=== PATIENT | female | born 1975 | race Caucasian/White ===

== ENCOUNTER 2024-08-04 22:06 | Emergency (ER) | payer OTHER, SELFPAY ==
[2024-08-04 22:07] VITALS: BP 127/94
[2024-08-04 23:13] VITALS: BMI 26.3
[2024-08-04 23:16] VITALS: BP 133/79
[2024-08-05] VITALS: BP 126/86
--- NOTE | 2024-08-05 00:11 | ED.GENMED ---
History of Present Illness
<Kym Radford MD, Resident - Last Filed: 08/07/24 08:15>
General
Chief Complaint: Breathing Problem
Source: patient
Exam Limitations: none
Time Seen by Provider: 08/04/24 23:38
History of Present Illness
History of Present Illness:
Patient is a 49-year-old female with no known prior allergy history. Mentions she had a headache earlier today and wanted to take Tylenol but accidentally took Mucinex. This was her first time taking Mucinex. Shortly after she developed an itchy
throat, shortness of breath, difficulty speaking and redness of both eyes along with clear discharge from nose and eyes. She also developed an itchy rash on her neck and arm.
Denies nausea, vomiting, diarrhea. Denies wheezing/cough. Denies dizziness/lightheadedness. Patient did drink water prior to coming to hospital and did not have trouble swallowing. Does not mention worsening of symptoms.
If applicable-neuro sx onset
Onset of symptoms known: Yes
Date of onset of symptoms: 08/04/24
Time of onset of symptoms: 17:50
Past History
<Kym Radford MD, Resident - Last Filed: 08/07/24 08:15>
Past History
ED Past Medical History: None
ED Past Surgical History: Other (Hysterectomy)
Review of Systems
<Kym Radford MD, Resident - Last Filed: 08/07/24 08:15>
Review of Systems
Allergies reviewed?: Yes
All Other Systems: ROS reviewed and negative except as documented in HPI and ROS
Phy Exam
<Kym Radford MD, Resident - Last Filed: 08/07/24 08:15>
General Physical Exam
General Presentation: moderate distress
General Skin: warm and dry
General Habitus: normal
General Mental: alert
ENT Exam
ENT Exam: EOMI and pharyngeal erythema (Very mild pharyngeal edema)
Eye Exam
Eye Exam: EOMI
Conjunctival Changes: bilateral: chemosis
Cardiovascular Exam
Cardiovascular Exam: regular rate/rhythm, no edema, no murmur and normal peripheral pulses
Pulmonary Exam
Pulmonary Exam: lungs clear, no respiratory distress and no wheezing
Cough: no cough
Gastrointestinal Exam
Gastrointestinal Exam: normal bowel sounds, non tender, soft and non distended
Neurological Exam
Neurological Exam: alert, oriented x3 and other (Hoarseness)
Musculoskeletal Exam
Musculoskeletal Exam: full ROM and no edema
Skin Exam
Skin Exam: erythema (Macular rash on upper chest and left arm)
Scores
<Kym Radford MD, Resident - Last Filed: 08/07/24 08:15>
Heart Failure Risk
Heart Failure Risk Score: Not Applicable
Course
<Kym Radford MD, Resident - Last Filed: 08/07/24 08:15>
Orders/Labs/Results
Orders:
Orders
08/05/24 00:08
Diphenhydramine [Benadryl] 50 mg PO NOW STA
08/05/24 00:10
Prednisone [Deltasone] 50 mg PO NOW STA
08/05/24 00:20
COVID-19 Antigen Urgent
Source: Nasal Swab
Influenza A+B Rapid Molecular Urgent
TIM Source: Nasal Swab
Specimen Description:
Vital Signs
Initial and Last Documented VS:
Initial Vital Signs
Temp Pulse Resp BP Pulse Ox
98.2 F 90 14 127/94 98
08/04/24 22:07 08/04/24 22:07 08/04/24 22:07 08/04/24 22:07 08/04/24 22:07
Last Documented Vital Signs
Temp Pulse Resp BP Pulse Ox
98.2 F 90 14 124/85 100
08/04/24 22:07 08/04/24 22:07 08/04/24 22:07 08/05/24 01:01 08/05/24 01:01
<Ryan Ferreira DO - Last Filed: 08/05/24 01:38>
Orders/Labs/Results
Orders:
Orders
08/05/24 00:08
Diphenhydramine [Benadryl] 50 mg PO NOW STA
08/05/24 00:10
Prednisone [Deltasone] 50 mg PO NOW STA
08/05/24 00:20
COVID-19 Antigen Urgent
Source: Nasal Swab
Influenza A+B Rapid Molecular Urgent
TIM Source: Nasal Swab
Specimen Description:
Vital Signs
Initial and Last Documented VS:
Initial Vital Signs
Temp Pulse Resp BP Pulse Ox
98.2 F 90 14 127/94 98
08/04/24 22:07 08/04/24 22:07 08/04/24 22:07 08/04/24 22:07 08/04/24 22:07
Last Documented Vital Signs
Temp Pulse Resp BP Pulse Ox
98.2 F 90 14 124/85 100
08/04/24 22:07 08/04/24 22:07 08/04/24 22:07 08/05/24 01:01 08/05/24 01:01
<Kym Radford MD, Resident - Last Filed: 08/07/24 08:15>
MDM/Problems Addressed
Differential Diagnosis Includes:
Allergic reaction to medication, upper respiratory infection
MDM/Problems Addressed:
Oral prednisone 50 and Benadryl 50 ordered for patient.
<Ryan Ferreira DO - Last Filed: 08/05/24 01:38>
MDM/Problems Addressed
MDM/Problems Addressed:
Suspected allergic reaction
<Ryan Ferreira DO - Last Filed: 08/05/24 01:38>
*Pulse Oximetry
Patient hypoxic: no
*Critical Care Note
Total Time (30-74mins, 75-104mins- exclusive of procedures): Not Applicable
Data Reviewed
Source: patient and family
ED Attending Note
<Kym Radford MD, Resident - Last Filed: 08/07/24 08:15>
-
Portions of this chart may have been created with voice recognition software.� Occasional wrong word or��sound alike� substitutions may have occurred due to the inherent limitations of voice recognition software.
<Ryan Ferreira DO - Last Filed: 08/05/24 01:38>
ED Attending Note
Patient seen and examined by attending physician: Yes
I performed a history and physical exam of patient and discussed management with resident, I reviewed resident's note and agree with documented findings and plan of care.: Yes
ED Attending Note:
49-year-old female presents after she began to have symptoms shortly after taking 2 Mucinex by accident. She thought she was taking 2 Tylenol. Shortly after she took the Mucinex she began to have congestion, reddened eyes, scratchy throat. She
feel that she had a reaction to the Mucinex. Exam: No stridor, lungs clear, very mild hoarse voice, sclera injected bilaterally. Assessment plan: Question viral source versus allergic reaction. Treated with steroids and Benadryl does feel bit
better. No upper airway compromise at this time. Okay for discharge. Benadryl as needed at home
Discharge Plan
Departure
Patient Disposition: Home (Routine Discharge)
Date of Disposition: 08/05/24
Time of Disposition: 01:37
Patient with high blood pressure during this ER visit?: No
Discharge Problem:
Allergic reaction
Instructions: Allergic Reaction ED
Prescriptions:
No Action
No Current Medications
0
Referrals:
Maurice Bui MD [Family Provider] -
Activity Restrictions/Additional Instructions:
Use Benadryl as needed. Return immediately for difficulty swallowing, difficulty breathing, changes in voice, noisy breathing (stridor or wheezing), or any other concerns.
Interventions
Interventions:
*Risk Screen - Suicide Last Done: 08/04/24 23:13
*General Assessment Last Done: 08/04/24 23:13
*Neglect/Abuse Screening Last Done: 08/04/24 23:13
ED- Fall Risk Assessment Last Done: 08/05/24 02:08
*ED COVID-19 Vaccine History Last Done: 08/04/24 23:13
*Nursing Disposition Last Done: 08/05/24 02:08
ED- Cardiac Assessment Last Done: 08/04/24 23:13
ED- Pulmonary Assessment Last Done: 08/04/24 23:13
Discharge Date and Time
Discharge Date/Time: 08/05/24 02:09
Print Language: PORTUGUESE
[2024-08-05] MEDS: DELTASONE 50 MG PO (00:17)
[2024-08-05] MEDS: BENADRYL 50 MG PO (00:17)
[2024-08-05 00:44] LABS: COVID-19 Antigen Negative (Negative)
[2024-08-05 01:01] VITALS: BP 124/85
== END 2024-08-05 02:09 | disposition home or self-care (01) ==
LOC: EMR 22:06
PROVIDERS: EMERGENCY PHYSICIAN Emergency Medicine; FAMILY PHYSICIAN Family Medicine
DX: T48.4X1A Poisoning by expectorants, accidental (unintentional), initial encounter (principal); R09.89 Other specified symptoms and signs involving the circulatory and respiratory systems
CPT/HCPCS: 99283; 87502; 87811